=== PATIENT | male | born 1970 | race Two or more races ===

== ENCOUNTER 2025-01-23 09:07 | Day surgery (SDC) | payer OTHER ==
[~2025-01-23 09:07] MED LIST: CLONAZEPAM0.5 MG PO; CLONAZEPAM2 M1 PO; FOLIC ACID0.8 M1; PAXIL20 MG PO; PROTECT IRON T1 EACH PO; RISPERDAL1 MG PO; TRAZODONE HCL50 MG PO; VITAMIN B-121000 MC4; VITAMIN B-650 M1; VITAMIN C500 M6
[2025-01-23] MEDS ORDERED: POVIDONE-IODINE 118 ML BOTT TOP ONE (12:45)
[2025-01-23] MEDS ORDERED: CEFTRIAXONE SODIUM 2,000 MG VIAL IV ONE (12:45)
[2025-01-23] MEDS ORDERED: SURGIFLO APPLICATOR 1 EACH APPL TOP ONE (12:45)
[2025-01-23] MEDS ORDERED: METRONIDAZOLE/SODIUM CHLORIDE 500 MG/100 ML PIGGYBACK IV ONE (12:45)
[2025-01-23] MEDS ORDERED: BUPIVACAINE HCL 30 ML VIAL IJ ONE (12:45)
[2025-01-23] MEDS ORDERED: DIBUCAINE 30 GM TUBE RECTAL ONE (12:45)
[2025-01-23] MEDS ORDERED: LIDOCAINE HCL 1%/EPINEPHRINE 20ML VIAL IJ ONE (12:45)
== END 2025-01-23 17:35 | disposition home or self-care (01) ==
LOC: CIR.AMB 09:07
PROVIDERS: ATTEND Colon & Rectal Surgery
DX: K64.2 Third degree hemorrhoids (principal); K64.4 Residual hemorrhoidal skin tags; Z88.6 Allergy status to analgesic agent

== ENCOUNTER 2025-03-10 16:25 | Emergency (ER) | payer OTHER ==
[~2025-03-10] VITALS: Ht 177.8 cm; Wt 115.7 kg
[2025-03-10] MEDS ORDERED: BARIUM SULFATE 450 ML ORAL.SUSP PO ONE (17:51)
[2025-03-10] MEDS ORDERED: MORPHINE SULFATE 4 MG/ML CARTRIDGE IV ONE (18:00)
[2025-03-10 18:28] LABS: HEMATOCRIT 37.8 % (39.0-48.0); HEMOGLOBIN 12.2 g/dL (13-16.00); MEAN CELL VOLUME 71.6 fL (80.0-100.00); MEAN CORPUSCULAR HEMOGLOBIN 23.2 pg (27.00-32.0); MEAN CORPUSCULAR HGB CONC 32.3 g/dl (32.0-36.0); PLATELET COUNT 309 K/uL (150-450); RED BLOOD COUNT 5.27 M/uL (4.00-6.00); RED CELL DISTRIBUTION WIDTH 14.1 % (11.5-14.5)
[2025-03-10] MEDS ORDERED: LORazepam 1 MG TABLET PO ONE (19:00)
== END 2025-03-10 22:06 | disposition home or self-care (01) ==
LOC: ER 16:26
PROVIDERS: Emergency Medicine
DX: K64.9 Unspecified hemorrhoids (principal); Z88.6 Allergy status to analgesic agent
CPT/HCPCS: 36415; 74177; 96365; 99284; J2270